=== PATIENT | male | born 1960 | race Caucasian/White ===

== ENCOUNTER 2016-04-29 15:56 | Emergency (ER) | payer OTHER ==
[~2016-04-29] VITALS: Ht 177.8 cm; Wt 113.4 kg
[2016-04-29 16:45] LABS: ABSOLUTE BASOPHIL COUNT 0.1 /CUMM (0.0-0.2); ABSOLUTE EOSINOPHIL COUNT 0.3 /CUMM (0.0-0.7); ABSOLUTE LYMPH COUNT 2.7 /CUMM (1.2-3.4); BASOPHIL % 0.5 % (0.0-2.0); EOSINOPHIL % 2.4 % (0-5); GRANULOCYTE % 66.3 % (42.2-75.2); MEAN CORPUSCULAR HGB 28.9 PG (27.0-31.0); MEAN CORPUSCULAR HGB CONC 33.1 G/DL (33.0-37.0); MEAN CORPUSCULAR VOLUME 87.3 FL (80.0-94.0); MEAN PLATELET VOLUME 8.2 FL (7.4-10.4); PLATELET COUNT 258 /CUMM (130-400); RBC DISTRIBUTION WIDTH 14.1 % (11.5-14.5); RED BLOOD CELL CT 5.28 /CUMM (4.70-6.10); WHITE BLOOD CELL COUNT 12.1 /CUMM (4.8-10.8)
--- NOTE | 2016-04-29 17:10 | ED DYSPNEA/ASTHMA COMPLAINT ---
History of Present Illness General Chief Complaint: Dyspnea (COPD, CHF, Other) Stated Complaint: "IM BEEN HAVING SHORTNESS OF BREATH" Source: patient Exam Limitations: no limitations Vital Signs & Intake/Output Vital Signs & Intake/Output Vital Signs Date Time Temp Pulse Resp B/P Pulse O2 O2 Flow FiO2 Ox Delivery Rate 04/29 2046 98.4 80 16 142/77 97 Room Air 04/29 2045 Room Air 04/29 1600 97.0 99 20 146/96 96 Room Air ED Intake and Output 04/30 0000 04/29 1200 Intake Total Output Total Balance Patient 250 lb Weight Allergies Coded Allergies: Penicillins (HIVES 04/29/16) Reconcile Medications Lisinopril 20 MG TABLET 1 TAB PO DAILY BP (Reported) Saw [place] (Unknown Strength) CAPSULE (Unknown Dose) PO DAILY SUPPLEMENT ( Reported) Warfarin Sodium 4 MG TABLET 8 MG PO DAILY BLOOD THINNER (Reported) Warfarin Sodium (Coumadin) 10 MG TABLET 1 TAB PO DAILY history of PE Triage Note: PT TO ED TO R/O PE. PT WAS SENT IN BY DR MENA (COVERING PT'S PCP). PT HAS HAD SOB AND SLIGHT CHEST PAIN X A FEW DAYS. H/O PE IN THE PAST, ON COUMADIN. Triage Nurses Notes Reviewed? yes HPI: Patient is a 55 year old male presents complaining of dyspnea and right sided chest pain. Patient reports he has had chronic dyspnea for a few months. Worse for 3-4 days after he was shoveling snow. Patient was seen by his primary doctor today and sent to the ED to rule out PE. Pain is sharp worsens with deep breath and movement. Dyspnea with exertion, none currently at rest. Patient takes Coumadin, reports that his INR has been slightly subtherapeutic for the past several weeks. Patient has sleep apnea, does not use cpap. Denies orthopnea, lower extremity edema, fevers, chills. (SUSAN WESLEY) Past History Travel History Traveled to [place] past 21 day No Medical History Any Pertinent Medical History? see below for history Cardiovascular: hypertension Respiratory: pulmonary embolism, sleep apnea Tetanus Vaccine: Surgical History Surgical History: non-contributory Psychosocial History What is your primary language Kosovan Tobacco Use: Quit >30 days ago ETOH Use: denies use Illicit Drug Use: denies illicit drug use Family History Hx Contributory? No (SUSAN WESLEY) Review of Systems Review of Systems Constitutional: Denies: chills, fever. EENTM: Reports: no symptoms. Respiratory: Reports: short of breath. Denies: cough, wheezing. Cardiovascular: Reports: see HPI, chest pain, palpitations. Denies: peripheral edema. GI: Denies: abdominal pain, nausea, vomiting. Genitourinary: Reports: no symptoms. Musculoskeletal: Reports: no symptoms. Skin: Reports: no symptoms. Neurological/Psychological: Reports: no symptoms. Hematologic/Endocrine: Reports: no symptoms. Immunologic/Allergic: Reports: no symptoms. (SUSAN WESLEY) Physical Exam Physical Exam General Appearance: well developed/nourished, alert, awake Head: atraumatic, normal appearance Eyes: Bilateral: normal appearance, PERRL, EOMI. Ears, Nose, Throat: normal pharynx, normal ENT inspection, hearing grossly normal Neck: normal inspection, supple, full range of motion Respiratory: normal breath sounds, chest non-tender, no respiratory distress, lungs clear Cardiovascular: regular rate/rhythm (NO APPRECIABLE MURMUR) Peripheral Pulses: 2+ dorsalis pedis (R), 2+ dorsalis pedis (L) Gastrointestinal: soft, non-tender Extremities: normal inspection, normal capillary refill, normal range of motion, no edema, NO CALF TENDERNESS Neurologic/Psych: no motor/sensory deficits, awake, alert, oriented x 3, normal gait, normal mood/affect Skin: intact, normal color, warm/dry Lymphatic: no anterior cervical larry Core Measures ACS in differential dx? Yes ASA ordered for poss ACS? No-ACS ruled out Severe Sepsis Present: No Septic Shock Present: No (SUSAN WESLEY) Progress Differential Diagnosis: asthma, AMI, bronchitis, CHF, COPD, pericarditis, pulmonary embolism, pneumonia, unstable angina Plan of Care: Orders Procedure Date/time Status Add-on Test (ER Only) 04/29 1710 Active D-DIMER 04/29 1625 Complete TROPONIN LEVEL 04/29 1605 Complete PROTHROMBIN TIME 04/29 1603 Complete COMPREHENSIVE METABOLIC PANEL 04/29 1603 Complete CBC WITHOUT DIFFERENTIAL 04/29 1603 Complete EKG 04/29 1603 Active Laboratory Tests 04/29/16 1625: Troponin I < 0.01 04/29/16 1625: Anion Gap 13, Estimated GFR > 60, BUN/Creatinine Ratio 18.9, Glucose 116 H, Calcium 10.1, Total Bilirubin 0.6, AST 26, ALT 40, Alkaline Phosphatase 38, Total Protein 7.5, Albumin 4.6, Globulin 2.9, Albumin/Globulin Ratio 1.6, PT 16.6 H, INR 1.59 H, D-Dimer < 200, CBC w Diff NO MAN DIFF REQ, RBC 5.28, MCV 87.3, MCH 28.9, RDW 14.1, MPV 8.2, Gran % 66.3, Lymphocytes % 22.6, Monocytes % 8.2, Eosinophils % 2.4, Basophils % 0.5, Absolute Granulocytes 8.0 H, Absolute Lymphocytes 2.7, Absolute Monocytes 1.0 H, Absolute Eosinophils 0.3, Absolute Basophils 0.1, PUBS MCHC 33.1 Results of labs and imaging discussed with patient. Patient reports he has an appointment with a cell cleaner next week, he is unsure of the name. Discussed increasing patient's dose of Coumadin from 8 mg to 10 mg and having his INR rechecked. Patient's symptoms for greater 24 hours with no elevation of troponin, no ST elevation or depression and no significant findings on CT chest. Appears stable for discharge with close outpatient follow-up. (RAZIA BECKER,SUSAN) Diagnostic Imaging: Viewed by Me: CT Scan. Discussed w/RAD: CT Scan. Radiology Impression: PATIENT: SERGO GOMEZ PRESENT AGE : 55 PATIENT ACCOUNT NO: [id number] : 56 LOCATION: [facility] ORDERING PHYSICIAN: SUSAN BECKER SERVICE DATE: 04/29/16 EXAM TYPE: CAT - CT HEAD WO IV CONTRAST EXAMINATION: CT HEAD WITHOUT CONTRAST CLINICAL INFORMATION: Dizziness. Patient on Coumadin. COMPARISON: None TECHNIQUE: Contiguous axial imaging was performed from the skull base to vertex without intravenous administration of contrast. DLP: 601 mGy-cm FINDINGS: There is no evidence of acute intracranial hemorrhage or territorial infarction. No abnormal mass effect or midline shift is seen. Boo to white matter differentiation is well preserved. No extra-axial fluid collections are identified. The ventricles are normal in size. There is no abnormal attenuation within the brain parenchyma. The osseous structures and soft tissues are normal. The sella turcica appears generous but the resolution of the scan does not permit further assessment. The mastoid air cells and visualized portions of the paranasal sinuses are well aerated. IMPRESSION: No acute intracranial pathology. Question generous sella turcica. Suprasellar cistern is normal. DICTATED BY: MARIAM BECKFORD MD DATE/TIME DICTATED:04/29/161942 LOAD OUT WORKER:[place] DATE/ TIME TRANSCRIBED:04/29/161942 CONFIDENTIAL, DO NOT COPY WITHOUT APPROPRIATE AUTHORIZATION. <Electronically signed in Other Vendor System> SIGNED BY: MARIAM BECKFORD MD 04/29/16 1950, PATIENT: SERGO GOMEZ PRESENT AGE: 55 PATIENT ACCOUNT NO: [id number] : 56 LOCATION: [facility] ORDERING PHYSICIAN: SUSAN BECKER SERVICE DATE: 04/29/16 EXAM TYPE: CAT - CTA CHEST-PULMONARY EMBOLISM EXAMINATION: CT ANGIOGRAM OF THE CHEST WITH AND WITHOUT CONTRAST (CT PULMONARY ANGIOGRAM FOR PE) CLINICAL INFORMATION: Chest pain and dyspnea. Patient recently diagnosed with pulmonary embolism. Recent subacute therapeutic INRs. COMPARISON: None available. TECHNIQUE: Prior to contrast administration, noncontrast localization images were obtained. Subsequently, multidetector volumetric imaging was performed from the thoracic inlet to below the diaphragms following the administration of 120 mL Optiray 350 intravenous contrast. Poor timing bolus, observed by CT technique. No contrast reaction reported Sagittal, coronal, and MIP oblique sagittal reformatted images were obtained on the CT workstation, uploaded to PACS, and reviewed. Total exam dose-length product 605 mGy-cm FINDINGS: QUALITY OF STUDY/CONTRAST BOLUS: Less than satisfactory. Images during levo phase of injection. PULMONARY ARTERIES: No central pulmonary emboli. THORACIC AORTA: No aneurysm or dissection. LUNG: An azygos lobe is present. Small apical blebs are present bilaterally. The lungs are clear. PLEURA: No pleural effusion or pneumothorax. MEDIASTINUM: Normal heart size. No pericardial effusion. No hilar or mediastinal lymphadenopathy. No evidence of septal bowing or right heart strain. CHEST WALL/AXILLA: No axillary or internal mammary lymphadenopathy. OSSEOUS STRUCTURES: No acute or suspicious osseous abnormality. UPPER ABDOMEN: Unremarkable. No reflux of contrast into the hepatic veins to suggest elevated right heart pressures. IMPRESSION: No evidence of central pulmonary emboli. VTE: negative as visualized. DICTATED BY: MARIAM BECKFORD MD DATE/TIME DICTATED:04/29/161933 LOAD OUT WORKER:J[place] DATE/TIME TRANSCRIBED:04/29/161933 CONFIDENTIAL, DO NOT COPY WITHOUT APPROPRIATE AUTHORIZATION. <Electronically signed in Other Vendor System> SIGNED BY: MARIAM BECKFORD MD 04/29/161945 Initial ED EKG: sinus rhythm, nonspecific ST/T-wave abnormalities Rhythm Strip: normal sinus rhythm (SUSAN WESLEY) Departure Departure Time of Disposition: 2008 Disposition: HOME OR SELF CARE Condition: Stable Clinical Impression Primary Impression: Chest pain Secondary Impressions: Dyspnea Referrals: SANTI CURRIE,CAMACHO Martin (PCP/Family) Additional Instructions: Increase your coumadin level to 10mg daily. you should have your INR rechecked within 3-5 days. Follow up with your primary doctor within 1 week for recheck and further evaluation. Also follow up with the cell cleaner next week as scheduled. Return to the ER if chest pain worsening, breathing worsening or worsening of symptoms. Departure Forms: Customer Survey General Discharge Information Prescriptions: Current Visit Scripts Warfarin Sodium (Coumadin) 1 TAB PO DAILY #30 TAB (SUSAN WESLEY) PA/MINERALOGY PROFESSOR Co-Sign Statement Statement: ED Attending supervision documentation- [] I saw and evaluated the patient. I have also reviewed all the pertinent lab results and diagnostic results. I agree with the findings and the plan of care as documented in the PA's/MINERALOGY PROFESSOR's documentation. [x] I have reviewed the ED Record and agree with the PA's/MINERALOGY PROFESSOR's documentation. [] Additions or exceptions (if any) to the PAs/MINERALOGY PROFESSOR's note and plan are summarized below: [] (LUIS CURRIE,PACHECO) Critical Care Note Critical Care Note Critical Care Time: non-applicable (SUSAN WESLEY)
[2016-04-29 17:50] LABS: PT 16.6 SEC (9.4-12.5)
[2016-04-29] MEDS ORDERED: WARFARIN SODIUM4 M1 PO (18:04)
[2016-04-29] MEDS ORDERED: LISINOPRIL20 M1 PO (18:04)
[2016-04-29] MEDS ORDERED: SAW PALMETTO500 M1 PO (18:05)
--- NOTE | 2016-04-29 19:46 | CT SCAN REPORT ---
EXAMINATION: CT ANGIOGRAM OF THE CHEST WITH AND WITHOUT CONTRAST (CT PULMONARY ANGIOGRAM FOR PE) CLINICAL INFORMATION: Chest pain and dyspnea. Patient recently diagnosed with pulmonary embolism. Recent subacute therapeutic INRs. COMPARISON: None available. TECHNIQUE: Prior to contrast administration, noncontrast localization images were obtained. Subsequently, multidetector volumetric imaging was performed from the thoracic inlet to below the diaphragms following the administration of 120 mL Optiray 350 intravenous contrast. Poor timing bolus, observed by CT technique. No contrast reaction reported Sagittal, coronal, and MIP oblique sagittal reformatted images were obtained on the CT workstation, uploaded to PACS, and reviewed. Total exam dose-length product 605 mGy-cm FINDINGS: QUALITY OF STUDY/CONTRAST BOLUS: Less than satisfactory. Images during levo phase of injection. PULMONARY ARTERIES: No central pulmonary emboli. THORACIC AORTA: No aneurysm or dissection. LUNG: An azygos lobe is present. Small apical blebs are present bilaterally. The lungs are clear. PLEURA: No pleural effusion or pneumothorax. MEDIASTINUM: Normal heart size. No pericardial effusion. No hilar or mediastinal lymphadenopathy. No evidence of septal bowing or right heart strain. CHEST WALL/AXILLA: No axillary or internal mammary lymphadenopathy. OSSEOUS STRUCTURES: No acute or suspicious osseous abnormality. UPPER ABDOMEN: Unremarkable. No reflux of contrast into the hepatic veins to suggest elevated right heart pressures. IMPRESSION: No evidence of central pulmonary emboli. VTE: negative as visualized.
--- NOTE | 2016-04-29 19:50 | CT SCAN REPORT ---
EXAMINATION: CT HEAD WITHOUT CONTRAST CLINICAL INFORMATION: Dizziness. Patient on Coumadin. COMPARISON: None TECHNIQUE: Contiguous axial imaging was performed from the skull base to vertex without intravenous administration of contrast. DLP: 601 mGy-cm FINDINGS: There is no evidence of acute intracranial hemorrhage or territorial infarction. No abnormal mass effect or midline shift is seen. Boo to white matter differentiation is well preserved. No extra-axial fluid collections are identified. The ventricles are normal in size. There is no abnormal attenuation within the brain parenchyma. The osseous structures and soft tissues are normal. The sella turcica appears generous but the resolution of the scan does not permit further assessment. The mastoid air cells and visualized portions of the paranasal sinuses are well aerated. IMPRESSION: No acute intracranial pathology. Question generous sella turcica. Suprasellar cistern is normal.
[2016-04-29] MEDS ORDERED: COUMADIN10 M1 PO (20:13)
[2016-04-29 20:47] VITALS: BP 142/77
== END 2016-04-29 20:47 ==
LOC: ERH 15:56
PROVIDERS: Emergency Medicine
DX: R07.9 Chest pain, unspecified (principal); R06.00 Dyspnea, unspecified; Z79.01 Long term (current) use of anticoagulants
CPT/HCPCS: 93005; 93010

== ENCOUNTER 2016-05-30 08:35 | Emergency (ER) | payer OTHER ==
[~2016-05-30] VITALS: Ht 177.8 cm; Wt 111.1 kg
[~2016-05-30 08:35] MED LIST: COUMADIN10 M1 PO; LISINOPRIL20 M1 PO; SAW PALMETTO500 M1 PO; WARFARIN SODIUM4 M1 PO
--- NOTE | 2016-05-30 09:12 | ED HAND/WRIST INJURY COMPLAINT ---
History of Present Illness General Chief Complaint: Hand or Wrist Injury Stated Complaint: CAT STRATCH TO R HAND ?SWOLLEN Source: patient, old records Exam Limitations: no limitations Vital Signs & Intake/Output Vital Signs & Intake/Output Vital Signs Date Time Temp Pulse Resp B/P Pulse O2 O2 Flow FiO2 Ox Delivery Rate 05/30 1058 97.8 80 20 134/61 96 Room Air 05/30 1009 96.0 78 18 124/51 98 05/30 0845 97.6 80 18 127/91 99 Room Air Allergies Coded Allergies: Penicillins (HIVES 04/29/16) Reconcile Medications Cefuroxime Axetil (Cefuroxime) 500 MG TABLET 1 TAB PO BID cat bite cellulitis Lisinopril 20 MG TABLET 1 TAB PO DAILY BP (Reported) Metronidazole 500 MG TABLET 1 TAB PO TID hand cellulitis Saw [place] (Unknown Strength) CAPSULE (Unknown Dose) PO DAILY SUPPLEMENT ( Reported) Warfarin Sodium 4 MG TABLET 8 MG PO DAILY BLOOD THINNER (Reported) Warfarin Sodium (Coumadin) 10 MG TABLET 1 TAB PO DAILY history of PE Triage Note: 55 Y/O MALE C/O REDNESS AND SWELLING TO HAND; SCRATCHED BY CAT YESTERDAY. STATES CAT IS YOLANDA AND NOT UP TO DATE WITH VACCINES. PT STATES HIS OWN TETANUS IS "CLOSE TO EXPIRING". REDNESS AND WARMTH NOTED TO R HAND. AFEBRILE Triage Nurses Notes Reviewed? yes HPI: Patient is a 55-year-old male presents complaining of pain, redness, swelling to the dorsal surface of his right hand. Patient was helping his sister try to poultry picker a cat when he was scratched multiple times in his right hand. Injury occurred yesterday. Patient reports he awoke this morning with the redness, pain, swelling. Pain is moderate to severe, worsens with movement and palpation. Patient is right-hand dominant. Patient reports that the cat is an indoor cat, has not been outside for at least 6-8 months. Patient is unsure of his last tetanus immunization believes it was approximately 10 years ago. Mild difficulty with full flexion of his right middle finger. Patient denies fevers, chills. (RAZIA BECKER,SUSAN) Past History Travel History Traveled to [place] past 21 day No Medical History Any Pertinent Medical History? see below for history Neurological: NONE EENT: NONE Cardiovascular: hypertension Respiratory: pulmonary embolism, sleep apnea Gastrointestinal: NONE Hepatic: NONE Renal: NONE Musculoskeletal: NONE Psychiatric: NONE Endocrine: NONE Blood Disorders: NONE Cancer(s): NONE WELDING PROCESS ENGINEER/Reproductive: NONE Tetanus Vaccine: Surgical History Surgical History: non-contributory Psychosocial History What is your primary language Macedonian Tobacco Use: Quit >30 days ago Family History Hx Contributory? No (SUSAN WESLEY) Review of Systems Review of Systems Constitutional: Denies: chills, fever. EENTM: Reports: no symptoms. Respiratory: Reports: no symptoms. Cardiovascular: Reports: no symptoms. GI: Denies: nausea, vomiting. Musculoskeletal: Reports: see HPI. Skin: Reports: see HPI. Neurological/Psychological: Denies: numbness, paresthesia. Hematologic/Endocrine: Denies: bruising, bleeding. Immunologic/Allergic: Denies: splenectomy. (SUSAN WESLEY) Physical Exam Physical Exam General Appearance: well developed/nourished, alert, awake Head: atraumatic, normal appearance Eyes: Bilateral: normal appearance. Ears, Nose, Throat: hearing grossly normal Neck: normal inspection, supple, full range of motion Cardiovascular/Respiratory: no respiratory distress Back: normal inspection, normal range of motion Elbow Right: normal range of motion, normal inspection Forearm Right: normal range of motion, normal inspection Hand Left: normal inspection, normal range of motion Hand Right: multiple puncture wounds to the dorsal surface of the right hand and a puncture wound to the dorsal right proximal middle finger. mild decrease in flexion at the third MCP joint. 5-6 cm of erythema, warmth, swelling to the dorsal right hand. 1 cm area of erythema with mild tenderness to the volar surface just proximal to the third MCP joint Neurologic/Tendon: normal sensation Skin: See hand right exam Lymphatic: no axillary lymphadenopathy (SUSAN WESLEY) Progress Differential Diagnosis: cellulitis, FOREIGN BODY, TENOSYNOVITIS, ABSCESS Plan of Care: Orders Procedure Date/time Status PROTHROMBIN TIME 05/31 923 Complete CBC WITHOUT DIFFERENTIAL 05/31 923 Complete Laboratory Tests 05/30/16 0933: PT 37.3 H, INR 3.60 H, CBC w Diff NO MAN DIFF REQ, RBC 5.14, MCV 86.8, MCH 28.8, RDW 14.1, MPV 8.1, Gran % 67.8, Lymphocytes % 23.6, Monocytes % 6.4, Eosinophils % 1.9, Basophils % 0.3, Absolute Granulocytes 7.7 H, Absolute Lymphocytes 2.7, Absolute Monocytes 0.7 H, Absolute Eosinophils 0.2, Absolute Basophils 0, PUBS MCHC 33.2 05/30/2016 11:00:19 AM: Results of labs and x-ray discussed with patient. Patient afebrile, nontoxic appearing. Discussed with patient how hand cellulitis can become very severe quickly and that if he develops any fevers or worsening he needs to return immediately and to return Friday morning ( approximately 36 hours) for recheck and further evaluation. (SUSAN WESLEY) Diagnostic Imaging: Viewed by Me: Radiology Read. Discussed w/RAD: Radiology Read. Radiology Impression: PATIENT: SERGO GOMEZ PRESENT AGE : 55 PATIENT ACCOUNT NO: [id number] : 56 LOCATION: [facility] ORDERING PHYSICIAN: SUSAN BECKER SERVICE DATE: 05/30/16 EXAM TYPE: RAD - XRY-HAND, RIGHT EXAMINATION: XR HAND, RIGHT CLINICAL INFORMATION: Cat scratch bite to right hand. Evaluate for foreign body. COMPARISON: None TECHNIQUE: AP, lateral, and oblique views of the right hand. FINDINGS: Soft tissue swelling at the dorsal, ulnar aspect of the hand without radiopaque foreign body or soft tissue emphysema. Bones have normal alignment. The carpal joint spaces are maintained. There is cartilage space narrowing and osteophyte formation at mildly degenerated second and third metacarpophalangeal joints. Also, there is mild osteoarthrosis of second and third PIP joints. No osseous erosion or periostitis. IMPRESSION: 1. Posttraumatic soft tissue swelling at the dorsal, ulnar aspect of the hand. 2. No radiopaque foreign body. 3. No acute osseous injury in the hand or wrist. DICTATED BY: LEONID FORDE MD DATE/TIME DICTATED: 05/30/161044 INJECTOR ASSEMBLER:J[place] DATE/TIME TRANSCRIBED:05/30/161044 CONFIDENTIAL, DO NOT COPY WITHOUT APPROPRIATE AUTHORIZATION. <Electronically signed in Other Vendor System> SIGNED BY: LEONID FORDE MD 05/30/16 1051 (SUSAN WESLEY) Departure Departure Time of Disposition: 1101 Disposition: HOME OR SELF CARE Condition: Stable Clinical Impression Primary Impression: Cellulitis of hand, right Secondary Impressions: Elevated INR Referrals: MARYCRUZ CURRIE,LONG HANCOCK MD,CAMACHO Martin (PCP/Family) Additional Instructions: Rest, elevate your hand above the level your heart as much as possible. Return to the emergency department if redness spreading, temperature goes above 100.4, increasing pain, decreasing range of motion of your fingers, or worsening of symptoms. Your Coumadin level was 3.6 today. Do not take your dose this evening. Your level should be rechecked on Friday, contact your doctor to facilitate this. Departure Forms: Customer Survey General Discharge Information Prescriptions: Current Visit Scripts Cefuroxime Axetil (Cefuroxime) 1 TAB PO BID #14 TAB Metronidazole 1 TAB PO TID #21 TAB (RAZIA BECKER,SUSAN) PA/EDGING MACHINE SETTER Co-Sign Statement Statement: ED Attending supervision documentation- [X] I saw and evaluated the patient. I have also reviewed all the pertinent lab results and diagnostic results. I agree with the findings and the plan of care as documented in the PA's/EDGING MACHINE SETTER's documentation. [] I have reviewed the ED Record and agree with the PA's/EDGING MACHINE SETTER's documentation. [] Additions or exceptions (if any) to the PAs/EDGING MACHINE SETTER's note and plan are summarized below: [] (TERESA US DO)
[2016-05-30 09:40] LABS: ABSOLUTE BASOPHIL COUNT 0 /CUMM (0.0-0.2); ABSOLUTE EOSINOPHIL COUNT 0.2 /CUMM (0.0-0.7); ABSOLUTE GRANULOCYTE CT 7.7 /CUMM (1.4-6.5); ABSOLUTE LYMPH COUNT 2.7 /CUMM (1.2-3.4); ABSOLUTE MONOCYTE COUNT 0.7 /CUMM (0.10-0.60); BASOPHIL % 0.3 % (0.0-2.0); EOSINOPHIL % 1.9 % (0-5); GRANULOCYTE % 67.8 % (42.2-75.2); HEMATOCRIT 44.6 % (42-52); MEAN CORPUSCULAR HGB 28.8 PG (27.0-31.0); MEAN CORPUSCULAR HGB CONC 33.2 G/DL (33.0-37.0); MEAN CORPUSCULAR VOLUME 86.8 FL (80.0-94.0); MEAN PLATELET VOLUME 8.1 FL (7.4-10.4); PLATELET COUNT 204 /CUMM (130-400); RBC DISTRIBUTION WIDTH 14.1 % (11.5-14.5); RED BLOOD CELL CT 5.14 /CUMM (4.70-6.10); WHITE BLOOD CELL COUNT 11.4 /CUMM (4.8-10.8)
[2016-05-30 10:09] LABS: PT 37.3 SEC (9.4-12.5)
--- NOTE | 2016-05-30 10:51 | RADIOLOGY REPORT ---
EXAMINATION: XR HAND, RIGHT CLINICAL INFORMATION: Cat scratch bite to right hand. Evaluate for foreign body. COMPARISON: None TECHNIQUE: AP, lateral, and oblique views of the right hand. FINDINGS: Soft tissue swelling at the dorsal, ulnar aspect of the hand without radiopaque foreign body or soft tissue emphysema. Bones have normal alignment. The carpal joint spaces are maintained. There is cartilage space narrowing and osteophyte formation at mildly degenerated second and third metacarpophalangeal joints. Also, there is mild osteoarthrosis of second and third PIP joints. No osseous erosion or periostitis. IMPRESSION: 1. Posttraumatic soft tissue swelling at the dorsal, ulnar aspect of the hand. 2. No radiopaque foreign body. 3. No acute osseous injury in the hand or wrist.
[2016-05-30 10:58] VITALS: BP 134/61
[2016-05-30] MEDS ORDERED: CEFUROXIME500 MG PO (11:05)
[2016-05-30] MEDS ORDERED: METRONIDAZOLE500 M1 PO (11:05)
== END 2016-05-30 11:18 ==
LOC: ERH 08:35
PROVIDERS: Physician Assistant
DX: L03.113 Cellulitis of right upper limb (principal); R79.1 Abnormal coagulation profile; W55.03XA Scratched by cat, initial encounter; Y93.89 Activity, other specified; Y92.9 Unspecified place or not applicable
CPT/HCPCS: 73130-RT; 90471; 90714; 96374; 96375; J0696